=== PATIENT | male | born 1995 | race American Indian/Alaskan Native ===

== ENCOUNTER 2020-04-28 20:37 | Emergency (ER) | payer SELFPAY | END 2020-04-28 20:50 | disposition left against medical advice (07) | LOC: ED 20:37 | DX: M54.5 Low back pain (principal); Z53.21 Procedure and treatment not carried out due to patient leaving prior to being seen by health care provider ==

== ENCOUNTER 2020-06-02 04:03 | Emergency (ER) | payer MEDICAID ==
[2020-06-02 04:21] VITALS: BP 128/77
== END 2020-06-02 05:00 | disposition left against medical advice (07) ==
LOC: ED 04:03
DX: M79.645 Pain in left finger(s) (principal); Z53.21 Procedure and treatment not carried out due to patient leaving prior to being seen by health care provider